=== PATIENT | male | born 1980 | race Caucasian/White ===

== ENCOUNTER → 2022-02-17 | Outpatient (CLI) | payer BC | LOC: KOH-I 08:24 | DX: M79.604 Pain in right leg (principal); M41.86 Other forms of scoliosis, lumbar region; R05.9 Cough, unspecified; M25.461 Effusion, right knee | CPT/HCPCS: 71046; 72080; 73562 ==

== ENCOUNTER → 2022-02-24 | Day surgery (SDC) | payer BC | END | disposition home or self-care (01) | LOC: OR 07:50 | DX: Z12.11 Encounter for screening for malignant neoplasm of colon (principal); D12.4 Benign neoplasm of descending colon; K64.0 First degree hemorrhoids; K64.1 Second degree hemorrhoids; E66.8 Other obesity; Z68.32 Body mass index [BMI] 32.0-32.9, adult; Z80.0 Family history of malignant neoplasm of digestive organs | CPT/HCPCS: J2704; J7040 ==

== ENCOUNTER → 2022-02-25 | Outpatient (CLI) | payer BC | LOC: MRI 15:00 | DX: S83.411A Sprain of medial collateral ligament of right knee, initial encounter (principal); R93.6 Abnormal findings on diagnostic imaging of limbs; S83.511A Sprain of anterior cruciate ligament of right knee, initial encounter; M22.41 Chondromalacia patellae, right knee; X58.XXXA Exposure to other specified factors, initial encounter | CPT/HCPCS: 73721 ==